=== PATIENT | male | born 1955 | race Caucasian/White ===

== ENCOUNTER 2021-08-04 10:15 | Outpatient (CLI) | payer MEDICARE, SELFPAY ==
--- NOTE | 2021-08-04 10:26 | XR_ITS ---
WS: [id number] Exam: XR lumbar spine f/e only [id number] Date/Time of Exam: 08/04/2021 10:29 AM Reason For Exam: SPONDYLOLISTHESIS, LUMBAR REGION Comparison 03/20/2018. Mild degenerative anterolisthesis of L4 on L5 with about 5 mm forward movement of L4. No change since prior study. Facet arthropathy at all levels but most severe at L4-5 and L5-S1. Mild spondylosis. No fracture or dislocation. Disc spaces are relatively well maintained. No flexion or extension induced instability. XR/XR lumbar spine f/e only [id number] IMPRESSION: 1. No acute fracture or dislocation. 2. Mild degenerative anterolisthesis of L4 on L5 with about 5 mm forward moveme nt of L4. 3. Degenerative changes.
== END 2021-08-04 10:16 | disposition home or self-care (01) ==
LOC: RAD 10:22
PROVIDERS: PCP Nurse Practitioner Family; Visit Provider Anesthesiology Pain Medicine
DX: M43.16 Spondylolisthesis, lumbar region (principal)
CPT/HCPCS: 72120

== ENCOUNTER → 2021-11-10 09:39 | Outpatient (BNVA) | payer MEDICARE, SELFPAY | PROVIDERS: PCP Nurse Practitioner Family; Referring Provider Anesthesiology Pain Medicine; Visit Provider Physician Assistant | DX: M54.9 Dorsalgia, unspecified (principal); M47.899 Other spondylosis, site unspecified | CPT/HCPCS: 72110 ==

== ENCOUNTER → 2021-12-03 16:46 | Outpatient (BNVA) | payer MEDICARE, SELFPAY | PROVIDERS: PCP Nurse Practitioner Family; Visit Provider Orthopaedic Surgery | DX: Z20.822 Contact with and (suspected) exposure to COVID-19 (principal) | CPT/HCPCS: 87635 ==

== ENCOUNTER 2021-12-07 12:09 | Inpatient (IN) | payer MEDICARE, SELFPAY ==
--- NOTE | 2021-12-03 14:52 | P.ANESASSM_ITS ---
Pre-Anesthetic Assessment Height/Weight: Height 1.75 m Preop Diagnosis: Spondylolisthesis, spinal stenosis Operation Date: 12/07/21 07:00 Proposed Procedures p Posterior Lumbar Interbody FusionL4/5/M43.16 spondylolisthesis/M48.0062(Not Applicable) - Chris Montoya, DO Was Beta Luis taken within 24 hours: N/A Was Clonidine taken within 24 hours: N/A Social No alcohol and No tobacco Former smoker Exam alert, oriented x 3, clear to auscultation bilaterally and regular rate & rhythm Airway Submandibular: within normal limits Cervical ROM: within normal limits Mallampati: Class I Dentition: false History/ROS No significant complaints Pulmonary Chronic Obstructive Pulmonary Disease CV/HEM METS = 4 None reported Hepatic None reported GI Gastroesophageal Reflux Disease Metabolic Diabetes Mellitus Musc/skel Lower Back Pain and Osteoarthritis/DJD Spinal stensosis spondylolisthesis 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 Patient consents to proceed with general anesthesia. Risk of > 500 ml blood loss (7ml/kg in children): No Medications/Allergies Home Medications Medication Instructions Recorded Confirmed Last Taken Type aspirin 81 mg tablet,delayed 81 mg PO DAILY 11/10/21 11/10/21 Unknown History release atorvastatin 20 mg tablet 20 mg PO DAILY 11/10/21 11/10/21 Unknown History cetirizine 10 mg tablet (Zyrtec) 10 mg PO DAILY PRN 11/10/21 11/10/21 Unknown History cholecalciferol (vitamin D3) 250 250 mcg PO DAILY 11/10/21 11/10/21 Unknown History mcg (10,000 unit) capsule cinnamon bark 500 mg capsule 500 mg PO DAILY 11/10/21 11/10/21 Unknown History (Cinnamon) empagliflozin 25 mg tablet 25 mg PO DAILY 11/10/21 11/10/21 Unknown History (Jardiance) esomeprazole magnesium 20 mg 20 mg PO DAILY 11/10/21 11/10/21 Unknown History capsule,delayed release fluticasone furoate 27.5 1 spray INTRANASAL DAILY 11/10/21 11/10/21 Unknown History mcg/actuation nasal spray,suspension gabapentin 600 mg tablet 600 mg PO TID 11/10/21 11/10/21 Unknown History hydrocodone 10 mg-acetaminophen 1 tab PO Q6H PRN 11/10/21 11/10/21 Unknown History 325 mg tablet mecobalamin (vitamin B12) 1,000 1,000 mcg PO DAILY 11/10/21 11/10/21 Unknown History mcg chewable tablet (B12 Active) metformin 750 mg tablet,extended 750 mg PO BID 11/10/21 11/10/21 Unknown History release 24 hr multivitamin g-tmkkiing-ueqzmme tab PO 11/10/21 11/10/21 Unknown History fumarate 18 mg-vitamin K 25 mcg tablet zinc acetate 25 mg (zinc) capsule 25 mg PO DAILY 11/10/21 11/10/21 Unknown History (Galzin) Allergies Allergy/AdvReac Type Severity Reaction Status Date / Time No Known Drug Allergies Allergy none Verified 11/10/21 09:30 [facility] Anesthesia Social History Smoking and tobacco status: former smoker Data Anesthesia Cardiac Studies: No Data to Display
--- NOTE | 2021-12-03 15:41 | ECG_ITS ---
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 Measurements Intervals [place] Rate: 63 P: 82 FL: 202 QRS: -63 QRSD: 90 T: 38 QT: 380 QTc: 391 Interpretive Statements SINUS RHYTHM LEFT AXIS DEVIATION [QRS AXIS < -30] POSSIBLE ANTERIOR MYOCARDIAL INFARCTION , PROBABLY OLD [30 ms Q WAVE IN V3/V4, OR R < 0.2 mV IN V4] POSSIBLE INFERIOR MYOCARDIAL INFARCTION , PROBABLY OLD [30 ms Q WAVE IN II/aVF] INTERPRETATION BASED ON A DEFAULT AGE OF 40 YEARS No previous ECG available for comparison Electronically Signed On 12-03-2021 22:06:17 CDT by John Coles M.D. [id number] f
[2021-12-03 16:01] VITALS: BMI 29.5
[2021-12-03 17:52] LABS: Anion Gap 18.7 (5-19); Blood Urea Nitrogen 17 mg/dL (8-23); Calcium 9.7 mg/dL (8.5-10.5); Carbon Dioxide 22 mmol/L (22-29); Chloride 102 mmol/L (98-107); Glucose 228 mg/dL (65-115); Osmolality Calculated 295 mOsm/kg (285-295); Potassium 4.7 mmol/L (3.5-5.1); Sodium 138 mmol/L (136-145)
[2021-12-07] VITALS (32 sets, daily range): BP systolic 85–152; BP diastolic 59–90; PULSE 67–112; RESP 4–26; TEMP 36.4–37.6; O2SAT 92–99
--- NOTE | 2021-12-07 | SCC_ITS ---
Procedure done: 1. L4/5 Interbody fusion with posterolateral fusion 2. Instrumentation L3-5 3. Posterior spine fusion L3-L5 4. Cage at L4/5 5. Laminectomy L4 with partial facetectomies for decompression of nerve 6. Laminectomy of L3with partial facetectomies for decompression of nerve 7. use of autograft from same incision 8. allograft 9. Bone marrow aspirate from right iliac crest 10. use of computer navigation/ stereotactic for spine 8 seconds of fluoroscopic guidance, for a cumulative dose of 37.7 mGy, was provided to Dr. Montoya by the radiology department. C-arm images of the lumbar spine were saved for the patient's permanent record. [facility]
[2021-12-07] MEDS: sodium chloride 0.9% 1,000 ML 30 ML IV ×2 (06:25→13:10)
[2021-12-07 06:37] LABS: Glucose Point of Care 198 mg/dL (70-110)
--- NOTE | 2021-12-07 06:46 | W.PM.OPSUD ---
Surgery/Procedure H&P Update DATE OF PROCEDURE: December 07, 2021 DATE H&P PERFORMED: 11/10/21 H&P UPDATE INFORMATION: I have reviewed H&P completed within last 30 days, I have examined patient prior to procedure and No changes to prior documentation PREOP DIAGNOSIS: Spondylolisthesis L3-4 and L4-5 with Lumbar stenosis and Neurogenic Claudic PLANNED PROCEDURE: Operation Date: 12/07/21 07:00 Proposed Procedures p Posterior Lumbar Interbody FusionL4/5/M43.16 spondylolisthesis/M48.0062(Not Applicable) - Chris Montoya DO
--- NOTE | 2021-12-07 07:38 | P.ANESUD_ITS ---
Pre-Anesthetic Update Pre-Anesthetic Assessment: Date of Surgery/Procedure: 12/07/21 Preop Nahomi gnosis: Spondylolisthesis L3-4 and L4-5 with Lumbar stenosis and Neurogenic Claudic Proposed Procedure: Operation Date: 12/07/21 07:00 Proposed Procedures p Posterior Lumbar Interbody FusionL4/5/M43.16 spondylolisthesis/M48.0062(Not Applicable) - Chris Montoya, DO Any changes to Pre-Anesthetic Assessment?: No Last Intake: Intake Last Liquid Date 12/06/21 Last Liquid Time 19:00 Last Solid Date 12/06/21 Last Solid Time 17:00 Vitals: Temperature 97.7 F 12/07/21 06:06 Temperature Source Temporal Artery S can 12/07/21 06:06 Pulse Rate 67 12/07/21 06:06 Respiratory Rate 18 12/07/21 06:06 Blood Pressure 152/90 12/07/21 06:06 Blood Pressure Phoebe n 110 12/07/21 06:06 Pulse Oximetry 96 12/07/21 06:06 Oxygen Delivery Me thod 12/07/21 06:06 Exam: Pre-Anes Outpt Exam: alert, oriented x 3, clear to auscultation bilaterally and regular rate & rhythm Cardiac Studies: No Data to Display
[2021-12-07] MEDS: heparin, porcine 1,000 unit/mL INJ 10 mL 10000 UNIT IRRIGATION (08:52)
--- NOTE | 2021-12-07 10:39 | XR_ITS ---
WS: [id number] INTRAOPERATIVE TECHNIQUE: 3 Spot fluoroscopic images for intraoperative purposes. FLUOROSCOPY TIME: 17 seconds CLINICAL INFORMATION: PA/LAT Post op fusion COMPARISON: None. FINDINGS: Intraoperative changes pedicle screw fixation L3-L5 with interbody fusion graft at L4-L5. Localizatio n markers L5-S1 disc space. XR/XR lumbar spine 2-3V* 12036 IMPRESSION: Images obtained for intraoperative purposes.
--- NOTE | 2021-12-07 10:50 | PM.OP ---
Operative Report Date of procedure: December 07, 2021 Pre-op diagnosis: Preop Diagnosis Spondylolisthesis L3-4 and L4-5 with Lumbar stenosis and Neurogenic Claudic Post-op diagnosis: same Procedure done: 1. L4/5 Interbody fusion with posterolateral fusion 2. Instrumentation L3-5 3. Posterior spine fusion L3-L5 4. Cage at L4/5 5. Laminectomy L4 with partial facetectomies for decompression of nerve 6. Laminectomy of L3with partial facetectomies for decompression of nerve 7. use of autograft from same incision 8. allograft 9. Bone marrow aspirate from right iliac crest 10. use of computer navigation/ stereotactic for spine Surgeon: Chris Montoya Stock Receiver: Eddie Casillas Stock Receiver: The neurosurgical physician assistant, Eddie Casillas, PAC was needed for his expertise under the microscope. He was important and necessary throughout the procedure to complete in a safe and timely manner. He assisted with patient positioning prepping and draping tissue retraction suctioning of the operative field protection of the dural sac and tissue closure Estimated blood loss (mL): 650 Procedure: 1. L4/5 Interbody fusion with posterolateral fusion 2. Instrumentation L3-5 3. Posterior spine fusion L3-L5 4. Cage at L4/5 5. Laminectomy L4 with partial facetectomies for decompression of nerve 6. Laminectomy of L3with partial facetectomies for decompression of nerve 7. use of autograft from same incision 8. allograft 9. Bone marrow aspirate from right iliac crest 10. use of computer navigation/ stereotactic for spine Patient is brought to the operative suite. After undergoing anesthesia, the patient had neuro monitoring attached. Patient was then placed in the prone position on the Cornelius table. All areas of impingement were well-padded. Patient was then prepped and draped in the normal sterile fashion. Skin incision was then made over the L3 to L5 levels. Subperiosteal dissection was made out to the transverse processes of L3 and L4 and L5 bilaterally. Next attention was brought to placing the [employer] bone marrow aspirate kit was used to aspirate bone marrow aspirate. This was done by using the sharp probe to open up the bone. Aspiration was performed and then the blunt probe was then used to dissect down to through the bone tunnel. An aspirating well drawn back a millimeter approximately 20 cc of bone marrow aspirate was used. And mixed with the allograft and autograft bone that will be used. The next step was to place the fiducial in the right iliac crest for computer navigation. 2 pins were drilled into the iliac crest. The fiducial was attached. The C-arm was brought in and spun around the patient. The information from the serum was then loaded into computer in order to facilitate using computer navigation for placement of the pedicle screws. The technique for placing the pedicle screws was to use a drill followed by the gearshift probe computer navigation Followed by the ball probe to feel the superior inferior medial lateral armas of the pedicles. Then placement of the screws with computer navigation Was done at each pedicle. Screws were placed at L3 bilaterally and L4 bilaterally and L5 bilaterally. Next attention was brought to performing the laminectomy ofL4. This was done using the high-speed bur Kerrisons and curettes. Once the lamina was removed and then attention was brought to performing a partial facetectomy on the contralateral side. This was done again using the high-speed bur curettes and Kerrisons. The ligamentum flavum was taken down bilaterally from L4 to L5. Attention was then brought to the facet on the ipsilateral side. The facet was taken down. The L5 nerve was decompressed as it passed around the L5 pedicle. The laminectomy was done for purposes of decompressing the nerve as well as placement of the cage. The L4 nerve was identified as it traversed through the L4/5 foramen. The thecal sac was identified and retracted. The L4/5 disc base was identified. Using a knife the disc base was opened. And then sequential kristin were placed. The first shaver was a 6 and the last shaver was a 13. Using a pituitary and down going curette the endplates were scraped and disc material was removed from the space. Once adequate decompression of the disc base was felt to be had. Osteoamp sponge was packed into the anterior aspect of the disc base. Then a size 13 cage from [place] was placed after packing osteoamp into the cage. While placing the cage the thecal sac and L5 nerve was protected. C arm was used to ensure that the cages placed in the appropriate position. Next attention was brought to performing the laminectomy of L3. This was done using the high-speed bur Kerrisons and curettes. Once the lamina was removed and then attention was brought to performing a partial facetectomy on the contralateral side. This was done again using the high-speed bur curettes and Kerrisons. The ligamentum flavum was taken down bilaterally from L3 to L4. Attention was then brought to the facet on the ipsilateral side. The facet was taken down. The L4 nerve was decompressed as it passed around the L4 pedicle. The laminectomy was done for purposes of decompressing the nerve. The L3 was also palpated. This was done bilaterally. Neuro facilitate decompression of the L3 and L4 nerve roots bilaterally. Attention was then brought to attaching the rods to the screws placed in the L3 bilaterally, L4 bilaterally and L5 bilaterally. Caps were torqued into position. Locking the construct in place. Wound was copiously irrigated and then attention was brought to decorticating the facets and transverse processes laterally. Bone that was taken down from the lamina was used along with osteoamp fibers and sponges were packed into the lateral gutters along the facet joints. This was done bilaterally. Wound was then closed in a layered fashion starting with the thoracolumbar fascia. 0-vicryl was used the sub cutaneous tissue was closed with 2-0 vicryl and skin with 4-0 monocryl. Glue was then used to seal the skin and a steril dressing was applied. Patient was then placed in the supine position. The endotracheal tube was removed and patient was transferred to the PACU in stable condition.
[2021-12-07] MEDS: fentaNYL 50 mcg/mL INJ 2mL IVP ×2 (11:13→11:25)
[2021-12-07] MEDS: sodium chloride 0.9% 500 ML 999 ML IV (11:23)
[2021-12-07] MEDS: calcium chloride 10% Syr 10 mL 0.5 GM IVP (11:27)
[2021-12-07] MEDS: HYDROmorphone 1 mg/mL INJ 1 mL 0.5 MG IVP ×3 (11:36→12:00)
--- NOTE | 2021-12-07 11:47 | SUR.PHASEI ---
1055 PT TO PACU 5 AWAKE ALERT ID BAND TO LT WRIST PT ID WITH 2 IDENTIFIERS, IV TO LT WRIST #[id number] JELCO WITH NS 200ML UP AT FAST RATE PER DR ALAN AT BEDSIDE. PT MOVES ALL EXTREMITIES TO COMMAND, PT MOANS AND GROANS, UNABLE TO RATE PAIN AT THIS TIME. 1100 BP STILL LOW , UNABLE TO GIVE PAIN MED AT THIS TIME HOB DOWN TO 5 DEGREES AND KNEES UP, PT RESTLESS AND REPOSITIONING SELF IN BED DRESSING TO LOWER BACK D/I WITH ABD BINDER IN PLACE DR SHEN AT BEDSIDE SEE ORDERS FOR FLUID BOLUS AND CALCIUM CLORIDE IVP. 1110 PT HAS DRAIN TO LOW BACK INCISION , HEMABAC COMPRESSED WITH RED DRAINAGE TO TUBING AND SMALL AMT IN DRAIN, GOOD SUCTION NOTED, BILAT SCDS ON PT SEE PAIN MEDS GIVEN FOR PAIN.
--- NOTE | 2021-12-07 12:50 | PC.NURSE ---
Pt admit to Medsurg from OR. Pt moaning and groaning, he rates his pain past 10. VSS. IV patent with IV fluids infusion. Silverlon dressing dry and intact, abdominal binder in place. Hemovac patent/compressed.
[2021-12-07] MEDS: morphine 4 mg/mL SDV 1 mL 2 MG IVP ×3 (13:20→21:25)
[2021-12-07] MEDS: lactated ringers 1,000 ML 90 ML IV ×2 (13:22→23:14)
[2021-12-07] MEDS: gabapentin 300 mg Capsule 600 MG PO ×2 (14:16→20:50)
[2021-12-07] MEDS: ketorolac 30 mg/mL INJ IVP (14:16)
[2021-12-07] MEDS: HYDROcodone-acetaminophen 5-325 mg Tablet PO ×3 (14:54→23:12)
--- NOTE | 2021-12-07 14:54 | ANE.PACU2 ---
Inpatient post-anesthesia follow up: Airway intact: Yes Vital signs: Temperature 97.8 F Pulse Rate 106 Respiratory Rate 14 Blood Pressure 99/69 Pulse Oximetry 92 Oxygen Delivery Me thod Nasal Cannula Oxygen Flow Rate 2 Fraction of Inspir ed Oxygen Hydration adequate: Yes Nausea and vomiting: No Pain level: 3 Mental status: Baseline
--- NOTE | 2021-12-07 17:14 | PC.NURSE ---
Immunization: Moderna booster on08/17/21
[2021-12-07] MEDS: docusate sodium 100 mg Capsule PO (17:18)
[2021-12-07] MEDS: alum-mag-hydroxide-sime 30 mL UDC PO (19:23)
--- NOTE | 2021-12-07 19:30 | PC.NURSE ---
Shift Note: Pt alert and oriented. He had a tough time with pain at arrival to floor, we finally got it under control. His tolerable level is 3/4 on 0-10 scale. It helped when PT helped him OOB within a couple of hours of his arrival to [facility]. He did well. Steady on his feet, using a walker. He has had Morphine twice, Hypdrocodone once ( 2 tablets) and Ketorlac once. He ate his meal well. Urine out put of 550ml this shift Frequent safety and comfort rounds continue. Orders and/or nursing care completed as indicated. Patient monitored for response to intervention and treatment(s). Education provided includes log rolling, morphine, Ketorlac and hydrocodone Patient verbalized understanding and cooperation with plan of care and medications.. Will continue to monitor.
[2021-12-08] VITALS (12 sets, daily range): BP systolic 101–122; BP diastolic 57–74; PULSE 81–100; RESP 16–20; TEMP 36.4–37.3; O2SAT 91–94
[2021-12-08] MEDS: morphine 4 mg/mL SDV 1 mL 2 MG IVP ×5 (01:19→18:57)
[2021-12-08 02:34] LABS: Hematocrit 30.5 % (42.0-52.0); Hemoglobin 10.5 g/dL (11.7-16.6)
[2021-12-08] MEDS: HYDROcodone-acetaminophen 5-325 mg Tablet PO ×5 (03:24→20:37)
--- NOTE | 2021-12-08 06:49 | PC.NURSE ---
SHIFT SUMMARY Has had a good night. Started shift with c/o quite a bit of pain but stated was getting much better control of it with meds given when he could have them. Have alternated giving po Hydrocodone and IV Morphine and has rated pain mostly 3-4 through shift. Dressing to medial back CD with binder in place. Hemovac drain with 350ml sanguinous fluid this shift. IV infusing at 75ml/hr rate. Received third dose of IV antibiotics this am.Denies any numbness/tingling of BLE. Is pleasant and likes to drink coffee.
[2021-12-08] MEDS: atorvastatin 40 mg Tablet 20 MG PO (08:19)
[2021-12-08] MEDS: gabapentin 300 mg Capsule 600 MG PO ×3 (08:19→20:37)
[2021-12-08] MEDS: ketorolac 30 mg/mL INJ IVP ×2 (08:29→17:10)
[2021-12-08] MEDS: docusate sodium 100 mg Capsule PO ×2 (08:29→17:10)
[2021-12-08] MEDS: lactated ringers 1,000 ML 90 ML IV ×2 (08:29→20:39)
--- NOTE | 2021-12-08 08:39 | PM.PN ---
Subjective Subjective: Patient doing well. Drain still putting out. Pain is better than postoperatively. Legs already feel better than preoperatively. Vitals/I&O/Wt Last Vital Signs Temp 98.2 F 12/08/21 07:49 Pulse 89 12/08/21 08:04 Resp 16 12/08/21 08:04 BP 111/63 12/08/21 07:49 Pulse Ox 94 12/08/21 08:04 12/07/21 12/08/21 12/08/21 22:59 06:59 14:59 Intake Total 1400 / 4262 1610 / 5872 1012.5 / 1012.5 Output Total 940 / 2260 960 / 3220 Balance 460 / 2002 650 / 2652 1012.5 / 1012.5 Physical Exam Narrative: 5 5 strength bilateral lower extremities. Urinary Catheter Management: Connell: Cath Placed During This Visit: yes Reason for Continuing Indwelling Catheter: Perioperative Use in Selected Surgeries Urinary Catheter Date of Insertion: 12/07/21 Urinary Catheter Time of Insertion: 07:15 Data : 12/08/21 02:06 12/03/21 15:50 A&P Assessment and plan (1) Encounter for postoperative care: Patient is doing well. We will keep her 1 more day anticipate discharge tomorrow. Would like to keep the Hemovac drain in 1 more day. Will DC Connell. Status: Acute Attestations Medical Necessity Statement*: pain control Coding Level of Care Code Acute Stack Attendant for Lizbeth Nassar Diagnoses Encounter for postoperative care Z48.89
[2021-12-08 11:15] LABS: Glucose Point of Care 296 mg/dL (70-110)
[2021-12-08] MEDS: alum-mag-hydroxide-sime 30 mL UDC PO (12:19)
--- NOTE | 2021-12-08 14:27 | PC.NURSE ---
THIS NURSE REMOVED PATIENT'S HEMOVAC AND FISHMAN CATHETER.
[2021-12-08] MEDS: LORazepam 2 mg/mL INJ 1 mL 1 MG IVP (21:19)
[2021-12-09] VITALS (8 sets, daily range): BP systolic 113–127; BP diastolic 63–77; PULSE 85–112; RESP 14–22; TEMP 36.6–37.6; O2SAT 91–96
[2021-12-09] MEDS: HYDROcodone-acetaminophen 10-325 mg Tablet PO ×6 (03:19→23:20)
[2021-12-09] MEDS: ketorolac 30 mg/mL INJ IVP (03:46)
--- NOTE | 2021-12-09 06:43 | PM.PN ---
Subjective Subjective: POD 2 Patient reports increased back pain with leg pain primarily on the right side. Describes it more in his right buttock region. He was up ambulating with physical therapy yesterday. Has had a difficult time with pain control through the night. He denies any chest pain, shortness of breath or headaches. Vitals/I&O/Wt Last Vital Signs Temp 97.8 F 12/09/21 04:00 Pulse 112 H 12/09/21 04:00 Resp 22 H 12/09/21 04:00 BP 121/72 12/09/21 04:00 Pulse Ox 96 12/09/21 00:33 12/08/21 12/08/21 12/09/21 14:59 22:59 06:59 Intake Total 1012.5 / 1012.5 1560 / 2572.5 Output Total 1000 / 1000 475 / 1475 725 / 2200 Balance 12.5 / 12.5 1085 / 1097.5 -725 / 372.5 Physical Exam Narrative: Patient presents alert and oriented x3 with a good general appearance normal mood and affect. Mild tenderness around the incisional site with the incision appear to be healing nicely. No signs of erythema or drainage. No signs of infection. Patient denies any fevers or chills. 5/5 motor strength both lower extremities with negative straight leg raise bilaterally. Calves are supple no medial thigh tenderness. Pulses are 2+ at the dorsalis pedis and posterior tibial region. Good capillary refill throughout normal sensation light touch both lower extremities. Urinary Catheter Management: Connell: Cath Placed During This Visit: yes, but has since been removed by the nurse Reason for Continuing Indwelling Catheter: Decision to DC Catheter Urinary Catheter Date of Insertion: 12/07/21 Urinary Catheter Time of Insertion: 07:15 Date Urinary Catheter Removed: 12/08/21 Time Urinary Catheter Discontinued: 14:30 Data : 12/08/21 02:06 12/03/21 15:50 A&P Assessment and plan (1) Encounter for postoperative care: Encouraged him to continue mobilizing with physical therapy. Continue to try and balance his pain medications. We will have laxative of choice to help with bowel movement. Patient does not feel that he can go home at this time. We will continue to try and gain better pain control. Discussed possible discharge home tomorrow. Status: Acute (2) Status post lumbar spinal fusion: Status: Acute Attestations Medical Necessity Statement*: home tomorrow Coding Level of Care Code Acute School Psychology Professor for Chg Fwd Diagnoses Encounter for postoperative care Z48.89 Status post lumbar spinal fusion Z98.1
[2021-12-09] MEDS: lactated ringers 1,000 ML 90 ML IV ×2 (07:16→19:58)
[2021-12-09] MEDS: gabapentin 300 mg Capsule 600 MG PO ×3 (07:16→20:00)
[2021-12-09] MEDS: atorvastatin 40 mg Tablet 20 MG PO (07:16)
[2021-12-09] MEDS: docusate sodium 100 mg Capsule PO ×2 (07:16→17:44)
[2021-12-09] MEDS: diazePAM 5 mg Tablet PO ×3 (07:23→19:04)
--- NOTE | 2021-12-09 18:34 | PC.NURSE ---
PATIENT HAS DONE MUCH BETTER TODAY. PAIN CONTROLLED WITH ORAL MEDICATIONS. WORKED WITH PHYSICAL THERAPY. WALKING BETTER. SAT IN THE CHAIR THE MAJORITY OF THE DAY. GOOD PO INTAKE. EXCELLENT URINE OUTPUT. SURGICAL DRESSING HAS MINIMAL DRAINAGE. ABDOMINAL BINDER IN PLACE.
[2021-12-10] MEDS: HYDROcodone-acetaminophen 10-325 mg Tablet PO ×3 (03:31→11:58)
[2021-12-10] MEDS: diazePAM 5 mg Tablet PO (03:32)
[2021-12-10 03:51] VITALS: BP 129/64; PULSE 93; RESP 16; TEMP 37.2; O2SAT 92
[2021-12-10] MEDS: lactated ringers 1,000 ML 90 ML IV (06:45)
[2021-12-10 07:22] VITALS: BP 135/74; PULSE 87; RESP 18; TEMP 36.9; O2SAT 97
[2021-12-10] MEDS: atorvastatin 40 mg Tablet 20 MG PO (08:09)
[2021-12-10] MEDS: docusate sodium 100 mg Capsule PO (08:10)
[2021-12-10] MEDS: gabapentin 300 mg Capsule 600 MG PO (08:10)
--- NOTE | 2021-12-10 08:15 | PM.PN ---
Subjective Subjective: POD 3 Patient up in the chair this morning feeling better still reports back pain states his leg pain is much improved. States he has not had a bowel movement but is not worried about that and wants to go home. Denies any shortness of breath, chest pain, headaches. He has been mobilizing with physical therapy and a walker. Vitals/I&O/Wt Last Vital Signs Temp 98.5 F 12/10/21 07:22 Pulse 87 12/10/21 07:22 Resp 18 12/10/21 07:22 BP 135/74 12/10/21 07:22 Pulse Ox 97 12/10/21 07:22 12/09/21 12/10/21 12/10/21 22:59 06:59 14:59 Intake Total 1360 / 2915.5 1000 / 3915.5 Output Total 100 / 1700 Balance 1260 / 1215.5 1000 / 2215.5 Physical Exam Narrative: Patient presents alert and oriented x3 with a good general appearance normal mood and affect. Normal coordination normal stability. Mild tenderness around the incisional site with the incision appear to be healing nicely. No signs of erythema or drainage. No signs of infection. Patient denies any fevers or chills. 5/5 motor strength both lower extremities with negative straight leg raise bilaterally. Calves are supple no medial thigh tenderness. Pulses are 2+ at the dorsalis pedis and posterior tibial region. Good capillary refill throughout normal sensation light touch both lower extremities. Urinary Catheter Management: Connell: Cath Placed During This Visit: yes, but has since been removed by the nurse Reason for Continuing Indwelling Catheter: Decision to DC Catheter Urinary Catheter Date of Insertion: 12/07/21 Urinary Catheter Time of Insertion: 07:15 Date Urinary Catheter Removed: 12/08/21 Time Urinary Catheter Discontinued: 14:30 Data : 12/08/21 02:06 12/03/21 15:50 A&P Assessment and plan (1) Status post lumbar spinal fusion: Encouraged him to continue walking program. We will discharge home today. I have him follow-up in the office on Thursday 12/14. No bending lifting or twisting activities. Continue with laxative choice for bowel movement. Home with incentive spirometry for pulmonary toilet. Call if he is having problems. Status: Acute (2) Encounter for postoperative care: Status: Acute Attestations Medical Necessity Statement*: home today Coding Level of Care Code Acute Real Estate Job Titles for Chg Fwd Diagnoses Status post lumbar spinal fusion Z98.1 Encounter for postoperative care Z48.89
--- NOTE | 2021-12-10 08:49 | PC.SOCIAL ---
IMM Update pg 2 of IMM updated and reviewed w/ patient. Copy provided and Copy placed in chart.
[2021-12-10] MEDS: magnesium hydroxide 30 mL UDC PO (10:43)
[2021-12-10 11:47] VITALS: BP 135/74; PULSE 68; RESP 17; TEMP 37; O2SAT 98
[2021-12-10 13:31] VITALS: BP 135/74; PULSE 68; RESP 17; TEMP 37; O2SAT 98
--- NOTE | 2021-12-11 17:21 | P.DS_ITS ---
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,lumbar region Hospital Course Hospital Course uneventful Physical Exam Urinary Catheter Management: Connell: Cath Placed During This Visit: yes, but has since been removed by the nurse Reason for Continuing Indwelling Catheter: Decision to DC Catheter Urinary Catheter Date of Insertion: 12/07/21 Urinary Catheter Time of Insertion: 07:15 Date Urinary Catheter Removed: 12/08/21 Time Urinary Catheter Discontinued: 14:30 Discharge Data Studies Completed and Pending Completed Studies During Hospitalization Category Date Time Status XR lumbar spine 2-3V* [id number] Routine Exams 12/07/21 10:39 Completed Radiology Impressions Lumbar Spine X-Ray 12/07/21 10:39 IMPRESSION: Images obtained for intraoperative purposes. Laboratory Results Hgb 10.5 g/dL (11.7-16.6) L 12/08/21 02:06 Hct 30.5 % (42.0-52.0) L 12/08/21 02:06 Sodium 138 mmol/L (136-145) 12/03/21 15:50 Potassium 4.7 mmol/L (3.5-5.1) 12/03/21 15:50 Chloride 102 mmol/L (98-107) 12/03/21 15:50 Carbon Dioxide 22 mmol/L (22-29) 12/03/21 15:50 Anion Gap 18.7 (5-19) 12/03/21 15:50 BUN 17 mg/dL (8-23) 12/03/21 15:50 Creatinine 1.0 mg/dL (0.7-1.2) 12/03/21 15:50 GFR Calculation 75.0 mL/min (90-130) L 12/03/21 15:50 Glucose 228 mg/dL (65-115) H 12/03/21 15:50 POC Glucose 296 mg/dL (70-110) H 12/07/21 12:51 Calculated Osmolality 295 mOsm/kg (285-295) 12/03/21 15:50 Calcium 9.7 mg/dL (8.5-10.5) 12/03/21 15:50 Vitals Last Vital Signs Temp 98.6 F 12/10/21 13:31 Pulse 68 12/10/21 13:31 Resp 17 12/10/21 13:31 BP 135/74 12/10/21 13:31 Pulse Ox 98 12/10/21 13:31 Discharge Plan Discharge Patient Disposition: Home Condition: Stable Prescriptions: New diazepam [Valium] 5 mg tablet 5 mg PO Q8H PRN (Reason: muscle spasm) Qty: 30 0RF hydrocodone-acetaminophen 10-325 mg tablet 1 tab PO Q4H Qty: 40 0RF Continued gabapentin 600 mg tablet 600 mg PO TID 0RF hydrocodone-acetaminophen 10-325 mg tablet 1 tab PO Q6H PRN (Reason: Pain (Scale Score 7-10)) 0RF metformin 750 mg tablet extended release 24 hr 750 mg PO BID 0RF Jardiance 25 mg tablet 25 mg PO DAILY 0RF atorvastatin 20 mg tablet 20 mg PO DAILY 0RF ecgrohej-huc-kqda-vitamin K 18 mg iron-25 mcg tablet 1 tab PO DAILY 0RF aspirin 81 mg tablet,delayed release (DR/EC) 81 mg PO DAILY 0RF Galzin 25 mg (zinc) capsule 25 mg PO DAILY 0RF B12 Active 1,000 mcg tablet,chewable 1,000 mcg PO DAILY 0RF cholecalciferol (vitamin D3) 250 mcg (10,000 unit) capsule 250 mcg PO DAILY 0RF cinnamon bark [Cinnamon] 500 mg capsule 500 mg PO DAILY 0RF fluticasone furoate 27.5 mcg/actuation spray,suspension 1 spray intranasal DAILY 0RF Rx Instructions: into each nostril cetirizine [Zyrtec] 10 mg tablet 10 mg PO DAILY PRN (Reason: Allergy Symptoms) 0RF Discharge Orders: Discharge Order (Routine); Ordered 12/10/21 Ordered By: Eddie Casillas Referrals: [facility] [Other] Chris Montoya DO [Physician] - 12/15/21 8:30 am Discharge Diet: Advance as tolerated Discharge Activity: Increase activity as tolerated Patient Instructions: Hydrocodone/Acetaminophen (By mouth), Diazepam (By mouth), Lumbar Spinal Fusion (DC), Opioid Safety, OP Post-Operative Instructions Activity Restrictions/Additional Instructions: Thank you for [facility] for your care! The following is a list of instructions, from your provider, to follow upon your discharge to ensure you have the optimal recovery from your recent injury or surgery. Follow-up care is a lindsey part of your treatment and safety. Be sure to make and go to all appointments and call your doctor if you are having problems. If you do not already have a follow-up appointment made, call Dr. Montoya's] office in the next 1-3 days to make follow up appointment for 12/15/21 at [phone]. It is also a good idea to know your test results and keep a list of the medicines you take. Medications will be prescribed for you at your provider's discretion. These medications are to be used as instructed; if they are taken more often that prescribed they will not be refilled early and in most cases will not be refilled at all. > When a refill is needed,you should contact gifty ruvalcaba 2-3 business days before your prescription runs out. Medications will NOT be refilled by [employer] providers after hours! > Many pain medications contain Tylenol (Acetaminophen). Do not consume more than 4,000 mg of Tylenol per day in total with any combination ofmedications. > Pain medications can cause constipation. Please use an over the counter stool softener as directed, while taking pain medications. Consult your local pharmacist with questions or recommendations on stool softeners. If constipation persists, contact our office or your primary care provider. > While under our care, you are not to receive pain medications or other controlled substances from any other provider unless our office is not ified and approves. Any attempts to do so will result in refusal to prescribe any further pain medications and possible dismissal from our practice. Your wound and/or dressing should remain clean and dry for 2 days after surgery. On postoperative day 2 (48 hours after your surgery) the dressing (if present) should be removed and it is okay to shower and get the incision wet. Pad dry afterwards. No further dressing should be required from that point on. Do not put any creams or ointments on theincision > It is normal for there to be a small amount of discharge (bloody or blood tinged) present from a surgical wound for the first 1-3days. > The wound should be examined twice a day for signs of infection. Mild redness or bruising is to be expected but indications that an infection maybe starting would include; An increase in redness, swelling, or discharge, a foul odor present around the incision, and/or a fever greater than 101 ?F ? Showering is permitted, however we ask that you do not take a bath, sit in a whirlpool / Jacuzzi, or go swimming for 1 month. For only the first 2 days after surgery, lt will be necessary for you to cover your wound/dressing w ith plastic and tape to keep it dry. ? Walking is essential for the healing process after surgery. We would like you to slowly advance your walking. This should be done on relatively flat clear ground (inside or out) or can be done on a treadmill. Remember this goal does not have to happen all at once, slowly increase your distance and duration. This can be broken into more more than one walk per day as tolerated. Patients who walk as directed after surgery rarely require Physical Therapy. In the unlikely event this issue arises your provider will direct hospital staff to make the appropriate arrangements. ? No lifting over 5 pounds {a gallon of milk) or bending/twisting until further notice. Each of these activities places an unnecessary amount of stress onto the body and can impede the delicate healing process. > Instead of bending at the waist, keep your back straight and bend at the knees. > Instead of twisting your torso, keep your back straight and turn your entire body with your feet. ? You may sleep in any position which makes you comfortable. Many patients find comfort sleeping in a reclining chair. It is not abnormal to have difficulty sleeping for the first several weeks following your surgery. We recommend trying Benadry! or Tylenol PM as directed to help with your sleeping difficulties. Both medications are over the counter and available without prescription. ? NO SMOKING!!! Smoking dramatically increases the probability of developing postoperative wound infections. ? Common complaints after lumbar and/or thoracic spine surgery include, but are not limited to: numbness and/or tingling in the legs, pain around the incision and surrounding tissues, muscle spasms, or stiffness of the middle to low back. Contact our office if these symptoms persist or if an acute change occurs. ? No driving for the first 3-5days, and not while taking narcotics until seen at your follow-up appointment and cleared. There are no restrictions for riding on short trips, however if you take a longer trip, arrangements should be made to make regular stops to get out of the vehicle and stretch . ? Swelling is an unfortunate event that will take place with any surgery and is the primary source of your postoperative discomfort. While walking and regular approved activities helps control inflammation, there are additional steps you can take to minimizeswelling. > Place ice over the surgical site and surrounding tissue for twenty minutes, followed by applying a low/medium heat (heating pad) for an additional twenty minutes every 1-2 hours as needed for painrelief. > You may use of over the counter anti-inflammatory medications (Ibuprofen, Motrin, Aleve, Advil, etc) as directed on the package label. These types of medicines wm significantly reduce the amount of discomfort you experience after surgery from swelling. It should be noted that if you have and allergy to any of these medications, or a history of ulcers or kidney disease you should consult you primary care provider prior to starting these medications. Discharge Attestations Time Spent in Discharge Care*: less than 30 min Quality Metrics Clinical Quality Measures [ No reported AMI, CVA or VTE this stay] Coding Level of Care Code Acute Chg FW DC note Diagnoses Status post lumbar spinal fusion Z98.1 Encounter for postoperative care Z48.89
== END 2021-12-10 13:20 | disposition home health service (06) | DRG 460 ==
LOC: MEDSURG 12:09
PROVIDERS: Anesthesiology; Admitting Provider Orthopaedic Surgery; PCP Nurse Practitioner Family; Visit Provider Orthopaedic Surgery
PROC: 0SG00AJ Fusion of Lumbar Vertebral Joint with Interbody Fusion Device, Posterior Approach, Anterior Column, Open Approach (ICD-10-PCS; CPT 22612; principal; 2021-12-07 07:00)
DX: M48.062 Spinal stenosis, lumbar region with neurogenic claudication (principal); Z79.82 Long term (current) use of aspirin; Z79.891 Long term (current) use of opiate analgesic; Z79.84 Long term (current) use of oral hypoglycemic drugs; Z87.891 Personal history of nicotine dependence; M43.16 Spondylolisthesis, lumbar region
CPT/HCPCS: 36415; 36416; 51702; 72100; 76000; 80048; 82962; 85014; 85018; 93005; 97116; 97161; 97530; C1713; C9359; J0690; J1100; J1170; J1644; J1885; J2060; J2270; J2370; J2405; J2704; J3010; J3490; J7030; J7040; P9041; P9047

== ENCOUNTER → 2021-12-15 08:07 | Outpatient (BNVA) | payer MEDICARE, SELFPAY | PROVIDERS: PCP Nurse Practitioner Family; Visit Provider Orthopaedic Surgery | DX: Z98.1 Arthrodesis status (principal) | CPT/HCPCS: 72100 ==

== ENCOUNTER → 2021-12-22 07:38 | Outpatient (BNVA) | payer MEDICARE, SELFPAY | PROVIDERS: PCP Nurse Practitioner Family; Visit Provider Orthopaedic Surgery | DX: Z47.89 Encounter for other orthopedic aftercare (principal); Z98.890 Other specified postprocedural states; Z98.1 Arthrodesis status | CPT/HCPCS: 99999 ==

== ENCOUNTER → 2022-01-12 10:33 | Outpatient (BNVA) | payer MEDICARE, SELFPAY | PROVIDERS: PCP Nurse Practitioner Family; Visit Provider Orthopaedic Surgery | DX: Z98.1 Arthrodesis status (principal); Z47.89 Encounter for other orthopedic aftercare; Z98.890 Other specified postprocedural states | CPT/HCPCS: 72100; 99024 ==

== ENCOUNTER → 2022-02-23 10:22 | Outpatient (BNVA) | payer MEDICARE, SELFPAY | PROVIDERS: PCP Nurse Practitioner Family; Visit Provider Orthopaedic Surgery | DX: Z47.89 Encounter for other orthopedic aftercare (principal); Z98.1 Arthrodesis status; M41.86 Other forms of scoliosis, lumbar region | CPT/HCPCS: 72100; 99024 ==

== ENCOUNTER → 2022-05-20 14:04 | Outpatient (BNVA) | payer MEDICARE, SELFPAY | PROVIDERS: PCP Nurse Practitioner Family; Visit Provider Orthopaedic Surgery | DX: Z98.1 Arthrodesis status (principal); Z47.89 Encounter for other orthopedic aftercare | CPT/HCPCS: 72100; 99213 ==

== ENCOUNTER → 2022-08-19 09:10 | Outpatient (BNVA) | payer MEDICARE, SELFPAY | PROVIDERS: PCP Nurse Practitioner Family; Visit Provider Orthopaedic Surgery | DX: M48.062 Spinal stenosis, lumbar region with neurogenic claudication (principal); Z98.1 Arthrodesis status | CPT/HCPCS: 72100; 99213 ==

== ENCOUNTER → 2022-09-28 09:05 | Outpatient (BNVA) | payer MEDICARE, SELFPAY | PROVIDERS: PCP Nurse Practitioner Family; Visit Provider Anesthesiology Pain Medicine | DX: M48.062 Spinal stenosis, lumbar region with neurogenic claudication (principal); M54.16 Radiculopathy, lumbar region; M79.604 Pain in right leg; M79.605 Pain in left leg | CPT/HCPCS: 99205 ==

== ENCOUNTER 2022-10-19 08:16 | Outpatient (CLI) | payer MEDICARE, SELFPAY ==
--- NOTE | 2022-10-19 08:30 | CT_ITS ---
WS: [id number] CT LUMBAR SPINE TECHNIQUE: Noncontrast CT of the lumbar spine with coronal and sagittal reformatted images. CLINICAL INFORMATION: M54.16 - Radiculopathy, lumbar region COMPARISON: CT December 14, 2021 DLP: 1157.[address] scans at [facility] use at least one of these dose optimization techniques: automated e xposure control; mA and/or kV adjustment per patient size (includes targeted exams where dose is matc hed to clinical indication); or iterative reconstruction. FINDINGS: Mild lumbar curve. No acute compression. Pedicle screw fixation L3-L5 with interconnecting rods. LEFT interconnecting vadim displaced from the dorsal fastener at L3. Immature interbody fusion graft L4-L5 with subsidence. No significant bony bridging beyond the confines of the graft. Slight anterolisthesi s L4 on L5. Immature dorsal bone graft material. Wide laminectomy defects L3-L4 and L4-L5. No significant central canal stenosis. Mild lucency along t he RIGHT L5 pedicle screw suspicious for loosening. This is new compared to previous. L1-L2: No significant disc bulging. Mild facet arthropathy. Spinal canal and foramen are patent. L2-L3: Mild annular bulging. Slight effacement of ventral thecal sac. Mild facet arthropathy. Spinal canal and foramen are patent. L3-L4: Mild annular bulging. Slight effacement of ventral thecal sac. Mild narrowing of the subarticu lar recess bilaterally. Wide decompressive laminectomy. Small foraminal protrusions with moderate RIG HT greater than LEFT foraminal narrowing similar to previous. L4-L5: Slight anterolisthesis. Interbody fusion graft described above. Mild bilateral foraminal narro wing. Spinal canal has been decompressed. L5-S1: Mild annular bulging. Slight effacement of ventral thecal sac. Moderate facet arthropathy. Tin y central protrusion slightly contacts the traversing S1 nerve roots. Foramen are patent. Visualized pelvic bony structures: Normal. Paravertebral soft tissues: Normal. Adrenal glands are normal. Hypertrophic changes sacroiliac joints. CT/CT lumbar spine wo con* [id number] IMPRESSION: 1. Postoperative changes pedicle screw fixation L3-L5 with slight anterolisthe sis L4 on L5. Interbody fusion graft. Dorsal interconnecting rods. 2. Dislocation of the LEFT dorsal interconnecting vadim from the L3 fastener. Th is is new from previous. 3. Mild lucency along the RIGHT L5 pedicle screw. 4. Immature interbody fusion graft L4-L5. No significant bony bridging beyond the confines of the graft. Immature dorsal bone graft material. 5. No significant central canal stenosis. Spinal canal decompressed L3-L4 L4-L 5. 6. Small bilateral foraminal protrusions L3-L4 with moderate RIGHT greater manoj n LEFT foraminal narrowing. 7. Tiny central protrusion L5-S1 with slight contact of the S1 nerve roots. 8. Mild bilateral L4-L5 foraminal narrowing.
== END 2022-10-19 08:17 | disposition home or self-care (01) ==
LOC: RAD 08:21
PROVIDERS: Visit Provider Anesthesiology Pain Medicine
DX: M54.16 Radiculopathy, lumbar region (principal)
CPT/HCPCS: 72131

== ENCOUNTER → 2022-11-08 12:48 | Outpatient (BNVA) | payer MEDICARE, SELFPAY | PROVIDERS: Visit Provider Anesthesiology Pain Medicine | DX: M54.16 Radiculopathy, lumbar region (principal); M48.062 Spinal stenosis, lumbar region with neurogenic claudication | CPT/HCPCS: 62323; J1040 ==

== ENCOUNTER → 2022-11-22 09:59 | Outpatient (BNVA) | payer MEDICARE, SELFPAY | PROVIDERS: Visit Provider Anesthesiology Pain Medicine | DX: M48.062 Spinal stenosis, lumbar region with neurogenic claudication (principal); M79.604 Pain in right leg; M79.605 Pain in left leg | CPT/HCPCS: 99214 ==

== ENCOUNTER → 2022-12-02 10:21 | Outpatient (BNVA) | payer MEDICARE, SELFPAY | PROVIDERS: Visit Provider Orthopaedic Surgery | DX: M48.062 Spinal stenosis, lumbar region with neurogenic claudication (principal); M16.0 Bilateral primary osteoarthritis of hip; Z98.1 Arthrodesis status | CPT/HCPCS: 73502; 99214 ==

== ENCOUNTER → 2022-12-28 12:53 | Outpatient (BNVA) | payer MEDICARE, SELFPAY | PROVIDERS: Visit Provider Anesthesiology Pain Medicine | DX: M16.12 Unilateral primary osteoarthritis, left hip (principal) | CPT/HCPCS: 20610; 77002; J1030; J3490 ==

== ENCOUNTER → 2023-01-11 10:40 | Outpatient (BNVA) | payer MEDICARE, SELFPAY | PROVIDERS: Visit Provider Anesthesiology Pain Medicine | DX: M48.062 Spinal stenosis, lumbar region with neurogenic claudication (principal); M25.559 Pain in unspecified hip | CPT/HCPCS: 99214 ==